=== PATIENT | male | born 1965 | race Two or more races ===

== ENCOUNTER 2017-11-30 09:12 | Day surgery (SDC) | payer OTHER | END 2017-11-30 11:24 | disposition home or self-care (01) | LOC: GIL 09:12 | DX: Z12.11 Encounter for screening for malignant neoplasm of colon (principal); K57.90 Diverticulosis of intestine, part unspecified, without perforation or abscess without bleeding; K64.8 Other hemorrhoids; E66.9 Obesity, unspecified; Z68.41 Body mass index [BMI] 40.0-44.9, adult | CPT/HCPCS: 45378 ==